=== PATIENT | male | born 1985 | race Caucasian/White ===

== ENCOUNTER 2022-05-28 04:18 | Emergency (ER) | payer OTHER ==
[2022-05-28 04:25] VITALS: BP 148/81; PULSE 86; RESP 18; TEMP 98.1
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
== END 2022-05-28 07:37 | disposition home or self-care (01) ==
LOC: EC 04:18
DX: F60.9 Personality disorder, unspecified (principal)
CPT/HCPCS: 82075; 99284